=== PATIENT | male | born 1955 | race Caucasian/White ===

== ENCOUNTER 2019-08-30 22:33 | Inpatient (IN) | payer MEDICARE, OTHER ==
[~2019-08-30 22:33] MED LIST: ETOMIDATE INJ/PF 20 MG/10 ML SDV IV ONE; SUCCINYLCHOLINE CHLORIDE INJ 200 MG/10 ML VIAL ONE
--- NOTE | 2019-08-30 22:55 | ER Document Report ---
ED Medical Screen (RME) - General Chief Complaint: Vomiting Stated Complaint: VOMITING BLOOD Time Seen by Provider: 08/30/19 22:53 Information source: Patient Notes: Patient presents complaining of nausea and vomiting for the past 2 days. Patient states he has been vomiting blood. Patient states he is an alcoholic. Patient pale, tachycardic and passed out in triage. Patient brought back to trauma bay, report given to Dr. Schwab. I have greeted and performed a rapid initial assessment of this patient. A comprehensive ED assessment and evaluation of the patient, analysis of test results and completion of the medical decision making process will be conducted by additional ED providers. Physical Exam - General General appearance: Alert, Anxious In distress: Moderate Notes: Pale, tachycardic, mildly diaphoretic
[2019-08-30 23:24] LABS: ABSOLUTE BASOPHILS # (AUTO) 0.1 10^3/uL (0.0-0.2); ABSOLUTE EOSINOPHILS # (AUTO) 0.3 10^3/uL (0.0-0.6); ABSOLUTE LYMPHOCYTES (AUTO) 5.1 10^3/uL (0.5-4.7); ABSOLUTE MONOCYTES (AUTO) 1.2 10^3/uL (0.1-1.4); ABSOLUTE NEUT (AUTO) 5.1 10^3/uL (1.7-8.2); BASOPHILS % (AUTO) 1.3 % (0-2); EOSINOPHILS % (AUTO) 2.3 % (0-6); HEMATOCRIT 41.5 % (37.9-51.0); HEMOGLOBIN 13.6 g/dL (13.5-17.0); LYMPHOCYTES % (AUTO) 43.1 % (13-45); MEAN CORPUSCULAR HEMOGLOBIN 28.1 pg (27.0-33.4); MEAN CORPUSCULAR HGB CONC 32.8 g/dL (32.0-36.0); MEAN CORPUSCULAR VOLUME 86 fl (80-97); MONOCYTES % (AUTO) 10.1 % (3-13); PLATELET COUNT 385 10^3/uL (150-450); RED BLOOD COUNT 4.83 10^6/uL (4.35-5.55); RED CELL DISTRIBUTION WIDTH 17.2 % (11.5-14.0); SEGMENTED NEUTROPHILS % (AUTO) 43.2 % (42-78); TOTAL CELLS COUNTED % (AUTO) 100 %; WHITE BLOOD COUNT 11.8 10^3/uL (4.0-10.5)
[2019-08-30] MEDS ORDERED: PANTOPRAZOLE SODIUM 40 MG VIAL IV ONE (23:38)
[2019-08-30] MEDS ORDERED: PANTOPRAZOLE SODIUM 40 MG VIAL IV PRN (23:38)
[2019-08-30] MEDS ORDERED: LORAZEPAM INJ 2 MG/1 ML VIAL IV ONE (23:39)
--- NOTE | 2019-08-30 23:39 | RADIOLOGY REPORT (SQ) ---
EXAM DESCRIPTION: XR CHEST 1 VIEW COMPLETED DATE/TME: 08/30/2019 22:57 CLINICAL HISTORY: 64 years, Male, vomiting blood COMPARISON: None. NUMBER OF VIEWS: 1 TECHNIQUE: Portable chest LIMITATIONS: None. FINDINGS: Heart size is normal. Osteopenia. Lungs are clear. No pneumothorax IMPRESSION: No acute cardiopulmonary process copyright 2011 [employer]- All Rights Reserved
[2019-08-30 23:40] LABS: INTERNATIONAL RATION (INR) 1.03; PARTIAL THROMBOPLASTIN TIME 25.6 SEC (23.5-35.8); PROTHROMBIN TIME 13.5 SEC (11.4-15.4)
[2019-08-30 23:43] LABS: ALBUMIN 3.9 g/dL (3.5-5.0); ALKALINE PHOSPHATASE 55 U/L (38-126); ANION GAP 8 (5-19); ASPARTATE AMINO TRANSFERASE 29 U/L (17-59); BILIRUBIN,TOTAL 0.3 mg/dL (0.2-1.3); BLOOD UREA NITROGEN 28 mg/dL (7-20); CALCIUM 10.5 mg/dL (8.4-10.2); CARBON DIOXIDE 22 mmol/L (22-30); CHLORIDE 110 mmol/L (98-107); GLUCOSE 137 mg/dL (75-110); POTASSIUM 4.4 mmol/L (3.6-5.0); TOTAL PROTEIN 6.9 g/dL (6.3-8.2)
--- NOTE | 2019-08-30 23:51 | ER Document Report ---
ED General - General Chief Complaint: GI Bleeding Stated Complaint: VOMITING BLOOD Time Seen by Provider: 08/30/19 22:53 - HPI Notes: 64-year-old male history of alcohol abuse, possible distant prior GI bleed unknown etiology presents with 2 episodes of massive bright red blood hematemesis just prior to arrival associated with severe lightheadedness near syncope. Patient says that he has not been to doctor in 20 years. Heavily, last drink yesterday. Patient denies any abdominal pain, diarrhea, melena, bright red blood per rectum, chest pain, shortness of breath, fever, trauma. History limited by acuity. Past Medical History - General Information source: Patient - Social History Smoking Status: Current Every Day Smoker Frequency of alcohol use: Heavy Family History: Other - unable 2/2 pt acuity Patient has homicidal ideation: No Review of Systems - Review of Systems -: Yes ROS unobtainable due to patient's medical condition Physical Exam - Vital signs Vitals: Temp 97 F L 08/30/19 22:54 - Notes Notes: PHYSICAL EXAMINATION: GENERAL: Awake alert oriented diaphoretic patient HEAD: Atraumatic, normocephalic. EYES: Pupils equal round and appropriate constriction, sclera anicteric, conjunctiva are normal. ENT: nares patent, moist mucous membranes. NECK: Normal range of motion, supple without lymphadenopathy LUNGS: Breath sounds clear to auscultation bilaterally and equal, tachypneic. No wheezes rales or rhonchi. HEART: tachycardic regular rhythm without murmurs ABDOMEN: Soft, nontender, distended, no guarding, no masses, no CVAT EXTREMITIES: Normal range of motion, no pitting or edema. No cyanosis. NEUROLOGICAL: Awake, alert, conversing appropriately, moves all extremities spontaneously. PSYCH: Normal mood, normal affect. SKIN: diaphoretic, normal turgor Course - Re-evaluation Re-evalutation: 08/30/19 23:49 Patient came directly to trauma bay after nearly syncopized in triage and being markedly tachycardic to 130s and hypotensive. Patient extremely diaphoretic, had just had 2 massive episodes of hematemesis prior to arrival. Patient was intubated for airway protection and to facilitate assessment of GI bleed. Unknown if history of varices v. Bleeding ulcer. Spoke to quartz miner station master Dr. Lucho and discussed case with him and he said that he would scope patient upon arrival to ICU. Discussed with ICU covering provider Urbano who has evaluated patient and accepted patient to ICU. Discussed case with patient's Ada at patient's request and had patient's brought into ED to be at bedside while critical. Vital signs have improved. - Vital Signs Vital signs: Temp Pulse Resp BP Pulse Ox 97.2 F 65 26 H 105/67 100 08/31/19 05:20 08/31/19 01:42 08/31/19 06:00 08/31/19 05:49 08/31/19 06:00 - Laboratory Result Diagrams: 08/31/19 03:46 08/31/19 03:46 Laboratory results interpreted by me: 08/30/19 08/30/19 08/30/19 23:00 23:00 23:00 WBC 11.8 H RDW 17.2 H Absolute Lymphs (auto) 5.1 H Chloride 110 H BUN 28 H Creatinine 1.31 H Est GFR (MDRD) Non-Af 55 L Glucose 137 H Calcium 10.5 H Crossmatch See Detail - EKG Interpretation by Me Additional EKG results interpreted by me: 08/30/19 23:00 Heart rate 84, normal sinus rhythm, no significant ST elevations or depressions, QTC 426 Procedures - Intubation Orotracheal Time of Intubation: 23:25 - 08/30/19 Airway evaluation: Normal anatomy Mallampati Classification: Class 2 Medications: Etomidate, Succinylcholine Intubation method: Orotracheal Blade type: Everette Blade size: 4 ETT size: 8.0 ETT secured at: Teeth ETT secured at (cm): 26 Breath Sounds after Intubation: Equal End tidal CO2 confirmed: Yes Post Intubation Xray: Yes Intubation Complications: No complications Critical Care Note - Critical Care Note Total time excluding time spent on procedures (mins): 60 Comments: Time spent stabilizing hemodynamically unstable patient, consulting specialist, reviewing imaging, discussing care with family Discharge - Discharge Clinical Impression: Upper GI bleed Condition: Critical Disposition: ADMITTED INPATIENT Admitting Provider: DR. praveen florez (SRINIVAS Clement) Unit Admitted: ICU
[2019-08-30] MEDS: PROPOFOL 1,000 MG/100 ML INFUS..BTL IV PRN (23:55)
[2019-08-30] MEDS ORDERED: ONDANSETRON HCL INJ/PF 4 MG/2 ML SDV IV ONE (23:56)
--- NOTE | 2019-08-31 00:25 | RADIOLOGY REPORT (SQ) ---
CLINICAL HISTORY: POST INTUBATION COMPARISON: 08/30/2019. TECHNIQUE: XR CHEST 1 VIEW 08/31/2019 12:00 AM CDT FINDINGS: The heart is mildly enlarged. Lungs are clear without consolidation, atelectasis, mass or edema. There is no pleural effusion. There is no pneumothorax. There are no acute osseous findings. Endotracheal tube tip is in the lower third of the trachea. IMPRESSION: Endotracheal tube in appropriate position.
--- NOTE | 2019-08-31 00:26 | PDOC CONSULTATION ---
Consultation Consult Date: 08/30/19 Provider Consulted: RAVEN MIRANDA Consult reason:: GI bleeding History of Present Illness Admission Date/PCP: 08/30/19 23:56 History of Present Illness: TRACIE WHITMAN is a 64 year old male patient had presented to the ED with possible hematemesis patient apparently has a known ETOH history reports 2 episodes of blood per vomitus was a little light headed but vitals were stable H/H in the normal range called by ED physician, wants to send patient to ICU, was intubated for apparent airway protection going to ICU, can get EGD done there possible varices althoug no thrombocytopenia noted on initial labs also PT/INR in the normal range Social History Smoking Status: Current Every Day Smoker Family History Family History: Other - unable 2/2 pt acuity Parental Family History Reviewed: Yes Children Family History Reviewed: Unknown Sibling(s) Family History Reviewed.: Unknown Review of Systems Constitutional: ABSENT: fever(s), headache(s), night sweats, weakness Eyes: ABSENT: visual disturbances Ears: ABSENT: hearing changes Nose, Mouth, and Throat: ABSENT: mouth pain, sore throat Cardiovascular: ABSENT: edema, orthropnea, palpitations Respiratory: ABSENT: dyspnea, hemoptysis Gastrointestinal: PRESENT: hematemesis Genitourinary: ABSENT: dysuria, hematuria Integumentary: ABSENT: lesions, pruritus Neurological: ABSENT: syncope, tingling, tremor(s), vertigo Endocrine: ABSENT: polydipsia, polyphagia, polyuria Hematologic/Lymphatic: ABSENT: easy bruising Physical Exam Vital Signs: Temp Pulse Resp BP Pulse Ox 96.7 F L 68 12 92/63 L 99 08/31/19 00:12 08/31/19 00:12 08/31/19 00:12 08/31/19 00:12 08/31/19 00:12 Intake & Output 08/29/19 08/30/19 08/31/19 06:59 06:59 06:59 Intake Total 0 Balance 0 Weight 107.1 kg General appearance: PRESENT: mild distress, well-developed, well-nourished Head exam: PRESENT: atraumatic, normocephalic Eye exam: PRESENT: EOMI, PERRLA. ABSENT: nystagmus, periorbital swelling, scleral icterus Mouth exam: PRESENT: moist, neck supple Throat exam: ABSENT: tonsillar exudate, tonsillogmegaly Neck exam: ABSENT: meningismus, tenderness, thyromegaly Respiratory exam: PRESENT: symmetrical, unlabored. ABSENT: tachypnea, wheezes Cardiovascular exam: PRESENT: RRR, +S1, +S2 GI/Abdominal exam: PRESENT: soft. ABSENT: rebound, rigid, tenderness Extremities exam: ABSENT: joint swelling Neurological exam: PRESENT: oriented to time, oriented to situation, CN II-XII grossly intact Focused psych exam: ABSENT: restlessness Skin exam: PRESENT: normal color, pallor. ABSENT: mottled, urticaria, vesicles Results Laboratory Results: 08/30/19 23:00 08/30/19 23:00 08/30/19 08/30/19 08/30/19 23:00 23:00 23:00 WBC 11.8 H RBC 4.83 Hgb 13.6 Hct 41.5 MCV 86 MCH 28.1 MCHC 32.8 RDW 17.2 H Plt Count 385 Seg Neutrophils % 43.2 Sodium 140.1 Potassium 4.4 Chloride 110 H Carbon Dioxide 22 Anion Gap 8 BUN 28 H Creatinine 1.31 H Est GFR ( Amer) > 60 Glucose 137 H Calcium 10.5 H Total Bilirubin 0.3 AST 29 Alkaline Phosphatase 55 Total Protein 6.9 Albumin 3.9 Blood Type O POSITIVE Antibody Screen NEGATIVE 08/30/19 23:00 Troponin I < 0.012 Assessment & Plan - Diagnosis (1) Upper GI bleed Plan: plan on EGD once stabalized in the ICU will discuss risks, benefits and alternatives and further recommendations to follow differential to include possible varices vs bleeding PUD - Time Time Spent: 50 to 70 Minutes
[2019-08-31] MEDS ORDERED: FENTANYL CITRATE INJ/PF 100 MCG/2 ML AMPUL ONE (01:00)
[2019-08-31] MEDS ORDERED: FLUMAZENIL INJ 0.5 MG/5 ML VIAL ONE (01:00)
[2019-08-31] MEDS ORDERED: NALOXONE HCL INJ/PF 0.4 MG/1 ML SDV ONE (01:00)
[2019-08-31] MEDS ORDERED: MIDAZOLAM 2 MG/2 ML INJ ONE (01:00)
[2019-08-31] MEDS ORDERED: GLUCAGON,HUMAN RECOMB 1 MG INJ ONE (01:01)
[2019-08-31] MEDS ORDERED: EPINEPHRINE INJ/PF 1 MG/1 ML AMPULE ONE (01:03)
--- NOTE | 2019-08-31 01:34 | Operative Report ---
Operative Report DATE OF SURGERY: 08/31/19 Operative Report: The risks benefits and alternatives of the procedure explained to the patient in detail and informed consent is obtained.A GIF Olympus video scope was inserted into the patient's mouth and hypopharynx, the esophagus is identified intubated and insufflated ,the scope was then advanced through the esophagus stomach and duodenum ,retroflexion maneuver is done the esophagus stomach and first and second portions of the duodenum examined PREOPERATIVE DIAGNOSIS: Hematemesis, history of alcohol use. Question possible varices although less likely given the fact that he does not have thrombocytopenia and his coagulation profile is normal. Differential includes peptic ulcer disease POSTOPERATIVE DIAGNOSIS: Informed consent was obtained and patient is on a propofol drip in the ICU. 2 clean based esophageal ulcers at the distal esophagus not actively bleeding remnants of old blood in the stomach. Hiatal hernia. Biopsy obtained to rule out for Helicobacter pylori. Recommend Protonix drip. Avoid NG tube OPERATION: EGD with biopsy SURGEON: RAVEN MIRANDA ANESTHESIA: LMAC TISSUE REMOVED OR ALTERED: As noted above COMPLICATIONS: None. ESTIMATED BLOOD LOSS: None. INTRAOPERATIVE FINDINGS: As noted above PROCEDURE: Patient tolerated procedure well. He remains intubated in the ICU. As noted Protonix drip should be started. Avoid NG tube as it would likely cause further ulceration and start bleeding No active bleeding from right now We will wait on biopsies As patient improves monitor H&H Transfuse as necessary Should be able to be extubated and diet to be advanced tomorrow Spoke to Ada who is been updated ICU staff aware of findings
[2019-08-31] MEDS ORDERED: NORMAL SALINE 1000 ML 1,000 ML IV ONE (01:50)
--- NOTE | 2019-08-31 02:10 | CRITICAL CARE ADMISSION REPORT ---
HPI Date:: 08/31/19 Time:: 00:30 Reason for ICU Reason:: GI Bleed Admission Date/Time & PCP: Admission Date/Time: 08/30/19 23:56 HPI: Mr. Prabhakar Maldonado is a 64-year-old gentleman with a known history of alcohol abuse last drink was last evening. Presented to the ED with hematemesis, states that patient had 2 episodes of vomiting bright red blood. Patient was intubated in the ED for airway protection. I was called to evaluate the patient for ICU admission. Upon my arrival to the ED patient was intubated not on any sedation appeared agitated, began vomiting dark coffee ground material. He was hypertensive with a blood pressure of 180s/ high 90s heart rate of 65, O2 saturation of 99% on FiO2 of 35%. I asked the nurse to start propofol, he was given 2 units of packed red blood cells and was admitted to the ICU for further management. Dr. Yepez social security assessor arrived to the ICU to perform an endoscopy. EGD revealed 2 clean based esophageal ulcers in the distal esophagus no active bleeding stigmata of previous bleed. He was bolused with 80 mg of Protonix and started on a Protonix drip. He did become hypotensive postprocedure, and was given 1 L normal saline bolus. Of note patient does not have a previous history of GI bleed. - Diagnosis/Plan (1) Upper GI bleed Is this a current diagnosis for this admission?: Yes Plan: EGD as above We will bolus with 80 mg of Protonix and start Protonix drip No NG tube to be inserted Biopsy sent for H. pylori we will follow-up on results (2) Endotracheally intubated Is this a current diagnosis for this admission?: Yes Plan: Was intubated in the ED for airway protection Patient on minimal vent settings will extubate this morning Past Medical History Psychiatric Medical History: Denies: Depression Social/Family History - Social History Smoking Status: Current Every Day Smoker Review of Systems ROS unobtainable: Due to endotracheal tube Physical Exam Vital Signs: Temp Pulse Resp BP Pulse Ox 96.6 F L 65 12 118/87 H 99 08/31/19 01:46 08/31/19 01:10 08/31/19 01:10 08/31/19 01:07 08/31/19 01:10 Intake & Output 08/29/19 08/30/19 08/31/19 06:59 06:59 06:59 Intake Total 603 Output Total 100 Balance 503 Weight 105.1 kg Weight/Height Weight 105.1 kg Height 6 ft General appearance: PRESENT: well-nourished Head exam: PRESENT: atraumatic Eye exam: PRESENT: PERRLA Mouth exam: PRESENT: moist, neck supple Neck exam: PRESENT: full ROM Respiratory exam: PRESENT: clear to auscultation pedro Cardiovascular exam: PRESENT: RRR, +S1, +S2 Pulses: PRESENT: normal carotid pulses, normal radial pulses GI/Abdominal exam: PRESENT: distended, hypoactive bowel sounds, soft Extremities exam: PRESENT: full ROM Neurological exam: PRESENT: other - Sedated on propofol Skin exam: PRESENT: normal color Tubes/Lines: PRESENT: Endotracheal Tube Laboratory/Radiographs Laboratory Results: 08/30/19 23:00 08/30/19 23:00 08/30/19 08/30/19 08/30/19 23:00 23:00 23:00 WBC 11.8 H RBC 4.83 Hgb 13.6 Hct 41.5 MCV 86 MCH 28.1 MCHC 32.8 RDW 17.2 H Plt Count 385 Seg Neutrophils % 43.2 Sodium 140.1 Potassium 4.4 Chloride 110 H Carbon Dioxide 22 Anion Gap 8 BUN 28 H Creatinine 1.31 H Est GFR ( Amer) > 60 Glucose 137 H Calcium 10.5 H Total Bilirubin 0.3 AST 29 Alkaline Phosphatase 55 Total Protein 6.9 Albumin 3.9 Blood Type O POSITIVE Antibody Screen NEGATIVE 08/30/19 23:00 Troponin I < 0.012 Impressions: Chest X-Ray 08/31/19 00:00 IMPRESSION: Endotracheal tube in appropriate position. All labs, radiographs, diagnostic studies and EKGs were personally reviewed: Yes In addition, reports of radiographic and diagnostic studies were read: Yes Critical Time Critical Time (minutes): 75 -: The care of a critically ill patient is dynamic. This note represents a static moment in the admission process. Orders and treatments may be given simultaneously and urgently, and time is not assisted sales representative of the treatment process. This patient requires Critical Care secondary to life threatening organ or limb dysfunction. Without Critical Care services, the patient is at risk for increased mortality and morbidity.
[2019-08-31] MEDS: PROPOFOL 1,000 MG/100 ML INFUS..BTL IV PRN (03:35)
[2019-08-31 03:53] LABS: ABSOLUTE BASOPHILS # (AUTO) 0.1 10^3/uL (0.0-0.2); ABSOLUTE LYMPHOCYTES (AUTO) 1.3 10^3/uL (0.5-4.7); ABSOLUTE MONOCYTES (AUTO) 0.9 10^3/uL (0.1-1.4); ABSOLUTE NEUT (AUTO) 10.3 10^3/uL (1.7-8.2); BASOPHILS % (AUTO) 1.1 % (0-2); EOSINOPHILS % (AUTO) 0.1 % (0-6); HEMATOCRIT 40.5 % (37.9-51.0); HEMOGLOBIN 13.5 g/dL (13.5-17.0); LYMPHOCYTES % (AUTO) 10.1 % (13-45); MEAN CORPUSCULAR HEMOGLOBIN 28.7 pg (27.0-33.4); MEAN CORPUSCULAR HGB CONC 33.3 g/dL (32.0-36.0); MEAN CORPUSCULAR VOLUME 86 fl (80-97); MONOCYTES % (AUTO) 6.8 % (3-13); PLATELET COUNT 233 10^3/uL (150-450); RED CELL DISTRIBUTION WIDTH 17.2 % (11.5-14.0); SEGMENTED NEUTROPHILS % (AUTO) 81.9 % (42-78); TOTAL CELLS COUNTED % (AUTO) 100 %; WHITE BLOOD COUNT 12.6 10^3/uL (4.0-10.5)
[2019-08-31 03:59] LABS: INTERNATIONAL RATION (INR) 1.15; PROTHROMBIN TIME 14.8 SEC (11.4-15.4)
[2019-08-31 04:00] LABS: PARTIAL THROMBOPLASTIN TIME 22.9 SEC (23.5-35.8)
[2019-08-31 04:20] LABS: ALBUMIN 3.2 g/dL (3.5-5.0); ALKALINE PHOSPHATASE 54 U/L (38-126); ANION GAP 6 (5-19); ASPARTATE AMINO TRANSFERASE 28 U/L (17-59); BILIRUBIN,TOTAL 0.6 mg/dL (0.2-1.3); BLOOD UREA NITROGEN 30 mg/dL (7-20); CALCIUM 8.8 mg/dL (8.4-10.2); CARBON DIOXIDE 19 mmol/L (22-30); CHLORIDE 115 mmol/L (98-107); GLUCOSE 116 mg/dL (75-110); POTASSIUM 4.4 mmol/L (3.6-5.0)
[2019-08-31] MEDS: NORMAL SALINE 1000 ML 1,000 ML IV PRN ×2 (06:27→17:52)
--- NOTE | 2019-08-31 08:42 | Progress Note ---
Provider Note Provider Note: Patient is awake, alert, wants to drink water. VS are very stable. D/C muñiz, get OOB. OK for medical floor. Regular diet. Hope to get home in a day or so.
--- NOTE | 2019-08-31 11:09 | EKG REPORT ---
SEVERITY:- NORMAL ECG - SINUS RHYTHM : Confirmed by: Sofía Diaz MD 31-Aug-2019 11:08:42
[2019-08-31] MEDS: NORMAL SALINE 100 ML with PANTOPRAZOLE SODIUM 80 MG IV PRN ×4 (11:55→21:49)
[2019-08-31] MEDS ORDERED: LORAZEPAM INJ 2 MG/1 ML VIAL IV PRN (16:34)
[2019-08-31] MEDS ORDERED: HYDRALAZINE HCL INJ/PF 20 MG/1 ML SDV IV PRN (16:35)
[2019-08-31] MEDS: THIAMINE HCL 100 MG TABLET PO SCH (17:52)
[2019-09-01] MEDS: NORMAL SALINE 1000 ML 1,000 ML IV PRN (01:32)
[2019-09-01 06:10] LABS: ABSOLUTE BASOPHILS # (AUTO) 0.2 10^3/uL (0.0-0.2); ABSOLUTE EOSINOPHILS # (AUTO) 0.2 10^3/uL (0.0-0.6); ABSOLUTE LYMPHOCYTES (AUTO) 1.8 10^3/uL (0.5-4.7); ABSOLUTE MONOCYTES (AUTO) 0.8 10^3/uL (0.1-1.4); BASOPHILS % (AUTO) 2.2 % (0-2); HEMATOCRIT 37.7 % (37.9-51.0); HEMOGLOBIN 12.5 g/dL (13.5-17.0); LYMPHOCYTES % (AUTO) 22.3 % (13-45); MEAN CORPUSCULAR HEMOGLOBIN 28.9 pg (27.0-33.4); MEAN CORPUSCULAR HGB CONC 33.3 g/dL (32.0-36.0); MEAN CORPUSCULAR VOLUME 87 fl (80-97); MONOCYTES % (AUTO) 10.3 % (3-13); PLATELET COUNT 239 10^3/uL (150-450); RED BLOOD COUNT 4.34 10^6/uL (4.35-5.55); RED CELL DISTRIBUTION WIDTH 16.9 % (11.5-14.0); SEGMENTED NEUTROPHILS % (AUTO) 62.2 % (42-78); TOTAL CELLS COUNTED % (AUTO) 100 %; WHITE BLOOD COUNT 8.1 10^3/uL (4.0-10.5)
[2019-09-01 06:31] LABS: ANION GAP 5 (5-19); BLOOD UREA NITROGEN 17 mg/dL (7-20); CALCIUM 8.3 mg/dL (8.4-10.2); CARBON DIOXIDE 21 mmol/L (22-30); CHLORIDE 112 mmol/L (98-107); GLUCOSE 95 mg/dL (75-110); POTASSIUM 3.9 mmol/L (3.6-5.0)
[2019-09-01] MEDS: NORMAL SALINE 100 ML with PANTOPRAZOLE SODIUM 80 MG IV PRN ×2 (08:24)
[2019-09-01] MEDS: THIAMINE HCL 100 MG TABLET PO SCH (09:05)
[2019-09-01 10:42] VITALS: BP 118/87
--- NOTE | 2019-09-01 14:52 | PDOC DISCHARGE SUMMARY ---
Impression - Admit/DC Date/PCP Admission Date/Primary Care Provider: 08/30/19 23:56 Discharge Date: 09/01/19 - Discharge Diagnosis (1) Upper GI bleed Is this a current diagnosis for this admission?: Yes (2) Alcohol abuse Is this a current diagnosis for this admission?: Yes (3) Esophageal ulcer Is this a current diagnosis for this admission?: Yes - Additional Information Discharge Diet: As Tolerated Discharge Activity: Activity As Tolerated, Balance Activity w/Rest Referrals: TRACIE GRAVES DO [NO LOCAL MD] - 09/05/19 2:15 pm Prescriptions: Sucralfate [Carafate 1 gm Tablet] 1 gm PO ACHS 10 Days #30 tablet Pantoprazole Sodium 40 mg PO DAILY 42 Days #42 tablet. Home Medications: Pantoprazole Sodium 40 mg PO DAILY 42 Days #42 tablet. 09/01/19 Sucralfate [Carafate 1 gm Tablet] 1 gm PO ACHS 10 Days #30 tablet 09/01/19 History of Present Illiness History of Present Illness: As per admitting physician Mr. Tracie Maldonado is a 64-year-old gentleman with a known history of alcohol abuse last drink was last evening. Presented to the ED with hematemesis, states that patient had 2 episodes of vomiting bright red blood. Patient was intubated in the ED for airway protection. I was called to evaluate the patient for ICU admission. Upon my arrival to the ED patient was intubated not on any sedation appeared agitated, began vomiting dark coffee ground material. He was hypertensive with a blood pressure of 180s/ high 90s heart rate of 65, O2 saturation of 99% on FiO2 of 35%. I asked the nurse to start propofol, he was given 2 units of packed red blood cells and was admitted to the ICU for further management. Dr. Yepez director teen post arrived to the ICU to perform an endoscopy. EGD revealed 2 clean based esophageal ulcers in the distal esophagus no active bleeding stigmata of previous bleed. He was bolused with 80 mg of Protonix and started on a Protonix drip. He did become hypotensive postprocedure, and was given 1 L normal saline bolus. Of note patient does not have a previous history of GI bleed. Hospital Course Hospital Course: (1) Upper GI bleed Patient was intubated in ED for airway protection and transferred to ICU, gastroenterology was consulted and patient underwent upper GI endoscopy which showed 2 esophageal ulcer possibly explaining the cause of his acute GI bleed. Post upper GI endoscopy patient was started on PPI drip and transferred to medical floor. Patient did not have any recurrence of his bleeding while in the floor. His H&H remained stable. On the day of discharge patient denied any nausea, vomiting, abdominal pain, diarrhea, constipation, lightheadedness or any palpitation. Patient was discharged home on pantoprazole 40 mg p.o. for the 6 weeks. Strongly advised to follow-up with his PCP to get the results of his biopsy which was done during EGD here consulted with any H. pylori infection. (2) Alcohol abuse Was started on folic acid and thiamine. Patient was encouraged abstain from alcohol. During hospitalization patient's vitals remained within normal limits. Did not have any signs of acute alcohol withdrawal. (3) Esophageal ulcer As per #1. Physical Exam Vital Signs: Temp Pulse Resp BP Pulse Ox 97.9 F 73 18 118/87 H 97 09/01/19 10:40 09/01/19 10:40 09/01/19 10:40 09/01/19 10:40 09/01/19 10:40 Intake & Output 08/31/19 09/01/19 09/02/19 06:59 06:59 06:59 Intake Total 1702 2786 100 Output Total 250 1660 Balance 1452 1126 100 Weight 105.1 kg 106.1 kg General appearance: PRESENT: no acute distress, obese Neck exam: ABSENT: carotid bruit, JVD, lymphadenopathy, thyromegaly Respiratory exam: PRESENT: clear to auscultation pedro. ABSENT: rales, rhonchi, wheezes Cardiovascular exam: PRESENT: RRR. ABSENT: diastolic murmur, rubs, systolic murmur GI/Abdominal exam: PRESENT: normal bowel sounds, soft. ABSENT: distended, guarding, mass, organolmegaly, rebound, tenderness Neurological exam: PRESENT: alert, awake, oriented to person, oriented to place, oriented to time, oriented to situation, CN II-XII grossly intact. ABSENT: motor sensory deficit Skin exam: PRESENT: dry, intact, warm. ABSENT: cyanosis, rash Results Laboratory Results: WBC 8.1 10^3/uL (4.0-10.5) 09/01/19 05:43 RBC 4.34 10^6/uL (4.35-5.55) L 09/01/19 05:43 Hgb 12.5 g/dL (13.5-17.0) L 09/01/19 05:43 Hct 37.7 % (37.9-51.0) L 09/01/19 05:43 MCV 87 fl (80-97) 09/01/19 05:43 MCH 28.9 pg (27.0-33.4) 09/01/19 05:43 MCHC 33.3 g/dL (32.0-36.0) 09/01/19 05:43 RDW 16.9 % (11.5-14.0) H 09/01/19 05:43 Plt Count 239 10^3/uL (150-450) 09/01/19 05:43 Lymph % (Auto) 22.3 % (13-45) 09/01/19 05:43 [place] % (Auto) 10.3 % (3-13) 09/01/19 05:43 Eos % (Auto) 3.0 % (0-6) 09/01/19 05:43 Baso % (Auto) 2.2 % (0-2) H 09/01/19 05:43 Absolute Neuts (auto) 5.0 10^3/uL (1.7-8.2) 09/01/19 05:43 Absolute Lymphs (auto) 1.8 10^3/uL (0.5-4.7) 09/01/19 05:43 Absolute Monos (auto) 0.8 10^3/uL (0.1-1.4) 09/01/19 05:43 Absolute Eos (auto) 0.2 10^3/uL (0.0-0.6) 09/01/19 05:43 Absolute Basos (auto) 0.2 10^3/uL (0.0-0.2) 09/01/19 05:43 Seg Neutrophils % 62.2 % (42-78) 09/01/19 05:43 PT 14.8 SEC (11.4-15.4) 08/31/19 03:46 INR 1.15 08/31/19 03:46 APTT 22.9 SEC (23.5-35.8) L 08/31/19 03:46 Sodium 137.6 mmol/L (137-145) 09/01/19 05:43 Potassium 3.9 mmol/L (3.6-5.0) 09/01/19 05:43 Chloride 112 mmol/L (98-107) H 09/01/19 05:43 Carbon Dioxide 21 mmol/L (22-30) L 09/01/19 05:43 Anion Gap 5 (5-19) 09/01/19 05:43 BUN 17 mg/dL (7-20) 09/01/19 05:43 Creatinine 1.13 mg/dL (0.52-1.25) 09/01/19 05:43 Est GFR ( Amer) > 60 (>60) 09/01/19 05:43 Est GFR (MDRD) Non-Af > 60 (>60) 09/01/19 05:43 Glucose 95 mg/dL (75-110) 09/01/19 05:43 Calcium 8.3 mg/dL (8.4-10.2) L 09/01/19 05:43 Total Bilirubin 0.6 mg/dL (0.2-1.3) 08/31/19 03:46 Direct Bilirubin 0.0 mg/dL (0.0-0.4) 08/31/19 03:46 Neonat Total Bilirubin Not Reportable 08/31/19 03:46 Neonat Direct Bilirubin Not Reportable 08/31/19 03:46 Neonat Indirect Bili Not Reportable 08/31/19 03:46 AST 28 U/L (17-59) 08/31/19 03:46 ALT 16 U/L (<50) 08/31/19 03:46 Alkaline Phosphatase 54 U/L (38-126) 08/31/19 03:46 Troponin I < 0.012 ng/mL 08/30/19 23:00 Total Protein 6.0 g/dL (6.3-8.2) L 08/31/19 03:46 Albumin 3.2 g/dL (3.5-5.0) L 08/31/19 03:46 Blood Type O POSITIVE 08/30/19 23:00 Antibody Screen NEGATIVE 08/30/19 23:00 Crossmatch See Detail 08/30/19 23:00 08/30/19 23:00 Troponin I < 0.012 Impressions: Chest X-Ray 08/30/19 22:57 IMPRESSION: No acute cardiopulmonary process copyright 2011 [employer]- All Rights Reserved Chest X-Ray 08/31/19 00:00 IMPRESSION: Endotracheal tube in appropriate position. Stroke Is this a Stroke Patient?: No Acute Heart Failure - Is this a Heart Failure Patient?: No
== END 2019-09-01 11:18 | disposition home or self-care (01) | DRG 381 ==
LOC: ER 22:33 → EH 23:56 → ICU 08-31 00:54 → 4S 08-31 14:45
PROVIDERS: ADMIT Anesthesiology; ATTEND Internal Medicine
PROC: 0BH17EZ Insertion of Endotracheal Airway into Trachea, Via Natural or Artificial Opening (ICD-10-PCS; 2019-08-30)
PROC: 30233N1 Transfusion of Nonautologous Red Blood Cells into Peripheral Vein, Percutaneous Approach (ICD-10-PCS; 2019-08-30)
PROC: 5A1935Z Respiratory Ventilation, Less than 24 Consecutive Hours (ICD-10-PCS; 2019-08-30)
PROC: 0DB78ZX Excision of Stomach, Pylorus, Via Natural or Artificial Opening Endoscopic, Diagnostic (ICD-10-PCS; principal; 2019-08-31 01:30)
DX: K22.11 Ulcer of esophagus with bleeding (principal); F10.188 Alcohol abuse with other alcohol-induced disorder; K44.9 Diaphragmatic hernia without obstruction or gangrene; F17.200 Nicotine dependence, unspecified, uncomplicated; I95.9 Hypotension, unspecified; R00.0 Tachycardia, unspecified
CPT/HCPCS: 36415; 36430; 43239; 71045; 80048; 80053; 84484; 85025; 85610; 85730; 86850; 86900; 86901; 86920; 93005; 93010; 94002; 94003; 96374; 99291; C9113; J0171; J0330; J1610; J2060; J2250; J2310; J2405; J2704; J3010; J3490; J7030; J7050; P9016